=== PATIENT | female | born 1940 | race African-American/Black ===

== ENCOUNTER → 2017-02-19 | Outpatient (CLI) | payer MEDICARE, OTHER ==
--- NOTE | 2017-02-19 12:36 | KCIC ---
Bone Densitometry History: Osteopenia, postmenopausal female. Findings: Bone Densitometry was performed with dual photon absorption of the lumbar spine and left proximal femur. Lumbar Spine: Bone density is 1.106 g/cm2 for L1-L4. T-score is 0.5. Z-score is 2.3. Left total femur: Bone density is 0.957 g/cm2. T-score is 0.1. Z-score is 0.9. IMPRESSION: Bone mineral densities of the lumbar spine and left femur are normal. World Health Organization definition of osteoporosis and osteopenia for women: normal equals T score at or above -1.0 standard deviations; osteopenia equals T score between -1.0 and -2.5 standard deviations; osteoporosis equals T score at or below -2.5 standard deviations. Electronically signed by: Mendoza Aiken MD (02/19/2017 12:33 PM) [id number]
== END | disposition home or self-care (01) ==
LOC: KCIC DEXA 09:34
PROVIDERS: ATTEND Family Medicine
DX: M81.0 Age-related osteoporosis without current pathological fracture (principal); Z78.0 Asymptomatic menopausal state
CPT/HCPCS: 77080

== ENCOUNTER → 2017-06-10 | Outpatient (CLI) | payer MEDICARE, OTHER | END | disposition home or self-care (01) | LOC: MAMMO 15:07 | DX: Z12.31 Encounter for screening mammogram for malignant neoplasm of breast (principal) | CPT/HCPCS: 77067 ==

== ENCOUNTER 2017-07-28 11:20 | Emergency (ER) | payer MEDICARE, OTHER ==
[2017-07-28 11:33] LABS: POC GLUCOSE 86 mg/dL (70-99)
[2017-07-28 12:20] LABS: ADD MAN DIFF? NO
[2017-07-28 12:25] LABS: BASO % 0 % (0-3); EOS % 1 % (0-3); HEMATOCRIT 35.3 % (36.0-47.0); HEMOGLOBIN 12.3 g/dL (12.0-15.5); LYMPH # 1.7 x10^3/uL (1.0-4.8); LYMPH % 36 % (24-48); MEAN CORPUSCULAR HEMOGLOBIN 33 pg (25-35); MEAN CORPUSCULAR HGB CONC 35 g/dL (31-37); MEAN CORPUSCULAR VOLUME 94 fL (79-100); MONO # 0.4 x10^3/uL (0.0-1.1); MONO % 8 % (0-9); NEUT # 2.6 x10^3uL (1.8-7.7); NEUT % 55 % (31-73); PLATELET COUNT 208 x10^3/uL (140-400); RED BLOOD COUNT 3.77 x10^6/uL (3.50-5.40); RED CELL DISTRIBUTION WIDTH 12.4 % (11.5-14.5); WHITE BLOOD COUNT 4.7 x10^3/uL (4.0-11.0)
[2017-07-28 12:28] LABS: BILIRUBIN,URINE NEGATIVE (NEG); CLARITY,URINE CLEAR; COLOR,URINE YELLOW; GLUCOSE,URINE NEGATIVE (NEG); NITRITE,URINE NEGATIVE (NEG); PROTEIN,URINE NEGATIVE (NEG-TRACE)
[2017-07-28 12:37] LABS: SQUAMOUS EPITHELIAL CELL,UR MOD /LPF
[2017-07-28 12:38] LABS: BACTERIA,URINE MODERATE /HPF (0-FEW); RBC,URINE OCC /HPF (0-2)
[2017-07-28 12:42] LABS: INR 1.1 (0.8-1.1); PARTIAL THROMBOPLASTIN TIME 28 SEC (24-38); PROTHROMBIN TIME PATIENT 13.6 SEC (11.7-14.0)
[2017-07-28 12:44] LABS: ANION GAP 7 (6-14); BLOOD UREA NITROGEN 17 mg/dL (7-20); BUN/CREATININE RATIO 19 (6-20); CALCIUM 9.3 mg/dL (8.5-10.1); CARBON DIOXIDE 31 mmol/L (21-32); CHLORIDE 102 mmol/L (98-107); CREATININE 0.9 mg/dL (0.6-1.0); GFR 73.7; GLUCOSE 91 mg/dL (70-99); POTASSIUM 3.2 mmol/L (3.5-5.1); SODIUM 140 mmol/L (136-145)
[2017-07-28 12:48] LABS: LACTIC ACID 0.9 mmol/L (0.4-2.0)
[2017-07-28 12:51] LABS: TROPONINI < 0.017 ng/mL (0.000-0.055)
[2017-07-28 12:55] LABS: ALBUMIN 3.8 g/dL (3.4-5.0); ALBUMIN/GLOBULIN RATIO 0.9 (1.0-1.7); ALK PHOS 83 U/L (46-116); ALT (SGPT) 19 U/L (14-59); AST (SGOT) 20 U/L (15-37); MAGNESIUM 1.9 mg/dL (1.8-2.4); TOTAL BILIRUBIN 0.5 mg/dL (0.2-1.0); TOTAL PROTEIN 8.2 g/dL (6.4-8.2)
[2017-07-28 13:20] LABS: NT-PRO BNP 16 pg/mL (0-449)
[2017-07-28 13:20] LABS: CKMB INDEX 1.5 % (0-4); CKMB MASS 2.8 ng/mL (0.0-3.6); CREATINE KINASE 188 U/L (26-192)
[2017-07-28] MEDS: ASPIRIN CHEWABLE 81 MG TABLET. PO (13:59)
== END 2017-07-28 13:55 | disposition home or self-care (01) ==
LOC: ER 11:20
DX: R25.1 Tremor, unspecified (principal); R41.82 Altered mental status, unspecified; I10 Essential (primary) hypertension
CPT/HCPCS: 36415; 70450; 71045; 80053; 81001; 82553; 82962; 83605; 83735; 83880; 84484; 85025; 85610; 85730; 87086; 93005; 99285-25

== ENCOUNTER 2018-07-01 15:22 | Emergency (ER) | payer MEDICARE, OTHER ==
[~2018-07-01] VITALS: Ht 165.1 cm; Wt 97.5 kg
[2018-07-01 15:55] VITALS: BP 136/88
[2018-07-01] MEDS ORDERED: FLUORESCEIN OPHTH TEST STRIP. OD ONE (16:00)
[2018-07-01] MEDS ORDERED: TETRACAINE 0.5% OPHTH SOLUTION 4ML BOTTLE. OD ONE (16:00)
[2018-07-01] MEDS ORDERED: ERYT1OIN6 OP (16:16)
--- NOTE | 2018-07-01 16:17 | PHYS DOC ---
Past Medical History Past Medical History: Hypertension Past Surgical History: Hysterectomy, Other Additional Past Surgical Histo: BREAST BIOPSY Alcohol Use: None Drug Use: None Adult General Chief Complaint Chief Complaint: EYE PROBLEMS HPI HPI Patient is a 77 year old Female who presents with left eye feeling like there's something in it,started this morning. States no real pain just discomfort and it feeling strange. Denies trauma to eye, denies scratching or rubbing eye. Review of Systems Review of Systems Constitutional: Denies fever or chills [] Eyes: Denies change in visual acuity, Reports redness, and eye pain [] HENT: Denies nasal congestion or sore throat [] Respiratory: Denies cough or shortness of breath [] Musculoskeletal: Denies back pain or joint pain [] Neurologic: Denies headache, focal weakness or sensory changes [] Endocrine: Denies polyuria or polydipsia [] All other systems were reviewed and found to be within normal limits, except as documented in this note. Current Medications Current Medications Current Medications Medications (Trade) Dose Ordered Sig/Kassie Start Time Stop Time Status Last Admin Dose Admin Fluorescein Sodium (Ful-Rubi) 1 strip 1X ONCE 07/01/18 16:00 07/01/18 16:01 DC 07/01/18 15:59 1 STRIP Tetracaine HCl (Tetracaine) 1 drop 1X ONCE 07/01/18 16:00 07/01/18 16:01 DC 07/01/18 15:59 1 DROP Allergies Allergies Allergies Coded Allergies Type Severity Reaction Last Updated Verified No Known Drug Allergies 07/28/17 No Physical Exam Physical Exam Constitutional: Well developed, well nourished, no acute distress, non-toxic appearance. [] HENT: Normocephalic, atraumatic, bilateral external ears normal, oropharynx moist, no oral exudates, nose normal. [] Eyes: PERRLA, EOMI, conjunctiva injected, whitish-yellow tinged mucousy discharge to right eye. left eye unremarkable [] Neck: Normal range of motion, no tenderness, supple, no stridor. [] Cardiovascular:Heart rate regular rhythm, no murmur [] Lungs & Thorax: Bilateral breath sounds clear to auscultation [] Skin: Warm, dry, no erythema, no rash. [] Neurologic: Alert and oriented X 3, normal motor function, normal sensory function, no focal deficits noted. [] Psychologic: Affect normal, judgement normal, mood normal. [] Current Patient Data Vital Signs Vital Signs Date Time Temp Pulse Resp B/P (MAP) Pulse Ox O2 Delivery O2 Flow Rate FiO2 07/01/18 15:55 98.6 94 16 136/88 (104) 97 Room Air 98.6 EKG EKG [] Radiology/Procedures Radiology/Procedures Eye Exam w/ murphy lamp: @1605 Visual Acuity: Visual Monique: Intact in all four quadrants bilaterally Lac ducts/glands: No swelling, small amount purulence Lids w/ evertion: Normal, no foreign body noted. Conj/Sims: Clear, negative Fluorescein Course & Med Decision Making Course & Med Decision Making Patient evaluted for right eye discomfort, in agreement with plan of care [] Dragon Disclaimer Dragon Disclaimer This electronic medical record was generated, in whole or in part, using a voice recognition dictation system. Departure Departure Impression: Primary Impression: Conjunctivitis of right eye Disposition: HOME, SELF-CARE Referrals: KELSIE CORTES MD (PCP) Patient Instructions: Bacterial Conjunctivitis, [id number] Additional Instructions: Wash your hands when you use the ointment Follow up with your PCP Scripts Erythromycin Base (Erythromycin) 1 Gm Oint...g. 1 GM OP TID for infection for 7 Days, #1 MISC 0 Refills Prov: SHERRIE GUERRA APRN 07/01/18 SHERRIE GUERRA APRN July 01, 2018 16:17
== END 2018-07-01 16:31 | disposition home or self-care (01) ==
LOC: ER 15:22
DX: H10.9 Unspecified conjunctivitis (principal); I10 Essential (primary) hypertension
CPT/HCPCS: 99283